=== PATIENT | male | born 1960 | race Caucasian/White ===

== ENCOUNTER 2016-07-27 13:38 | Outpatient (CLI) | payer OTHER ==
[~2016-07-27] VITALS: Ht 188 cm; Wt 96.8 kg
[2016-07-27 14:14] VITALS: BP 130/76; PULSE 62; RESP 18; Ht 188 cm; Wt 96.8 kg
[2016-07-27] MEDS ORDERED: TAMS0.4C2 PO (14:21)
[2016-07-27] MEDS ORDERED: HYDR-906 PO (14:21)
[2016-07-27] MEDS ORDERED: CEFD300C2 PO (14:21)
[2016-07-27] MEDS ORDERED: DOCU-144 PO (14:21)
--- NOTE | 2016-07-27 14:38 | PN ---
Date/Time of Note Date/Time of Note DATE: 07/27/16 TIME: 14:22 Outpatient Progress Note Chief Complaint Perirectal abscess/polycythemia HPI Perirectal abscess/the acute onset, few days' duration, as sure she did with pain, pain score 6 or 7 out of 10, reduced with the pain medication, no fevers chill, no bleeding, pain reduced with incision and drainage, now taking pain medication every 8 hours, Polycythemia/patient has polycythemia, no chest pain, no shortness of breath, no complaint at present, Review of Systems Const: No Fever, no chills, no Wt. loss, no Fatigue, normal appetite, no diaphoresis. Eyes: No pain, no discharge, no redness, no visual change, no foreign body. ENT: No pain, no bleeding, no congestion, no sore throat, no dysphagia, no discharge or rhinitis. Lymph: No adenopathy, no tender nodes, no lymphedema. Resp: No SOB, no cough, no sputum, no wheezing, no chest pain. CV: No chest pain, no palpitaions, no GURROLA, no PND, no edema. GI: Normal appetite, no pain, no nausea, no vomiting, no diarrhea, no blood, no constipation. : No frequency, no urgency, no dysuria, no hematuria, no flank pain, no discharge, no bleeding. Musc: No bone/joint pain, no back pain, no neck pain, no knee pain, no restricted ROM. Skin: No rash, no skin lesions, no erythema, no laceration, no bruising, no pruritus. Patient has perirectal abscess, has a IND, on the left side of the gluteal area, no bleeding or discharge, no redness patient has pain if patient sits too long, Neuro: No MCKEON, no dizziness, no syncope, no seizure, no focal-weakness. Endo: No polyuria, no polydypsia, no dry-skin, no temp-intolerance. Psych: No hallucinations, no depression, no anxiety, no suicidal ideation. Ext: No edema, no pain, no ulcer, no weakness. Physical Exam General Appearance: A 55 year-old male who appears well-developed, well- nourished, in no acute distress. HEENT: Head normocephalic, atraumatic. Pupils equal, round, reactive to light and accommodate. Sclerae are no jaundice. Nasal turbinates pink without erythema or nasal discharge. Mucous membranes pink and moist without lesions. Oropharynx clear without any exudate or discharge. NECK: Supple. Trachea midline, No thyromegaly, No cervical lymphadenopathy, No mass, No carotid bruits, No JVD, Carotid pulses 2+ bilaterally. PULMONARY: Clear to auscultaion bilaterally, No retractions, Chest expansion symmetric bilaterally, no rales, no ronchi, no dulness on percussion. CARDIAC: Normal SI and S2, Regular rate and rythm, no murmur, gallop, or rub. GASTROINTESTINAL: Abdomen is soft, non-tender, Non Rigid, No distention, Positive bowel sounds x4 quadrants, Liver normal. SKIN: Warm, dry, no rash, no bruise, no echmosis., Patient has perirectal abscess which has been incised, and drained, has gauze, no bleeding or discharge , no redness around the wound, no bleeding or discharge, EXTREMITIES: Bilateral lower extremities normal, no edema, no phlabitus, pulse palpable, no contracture. MUSCULOSKELETAL: Spine Normal, Non-tender, Normal range of motion, No swelling, no deformity, no clubbing, or cyanosis, the patient has no edema to bilateral lower extremities, dorsalis pedis pulses palpable bilaterally. NEUROLOGIC: The patient is awake, alert, oriented, responding to yes/no questions appropriately, moving all extremities, cranial nerve intact, normal strenght, normal power, normal coordination, normal gait. Allergies Coded Allergies: No Known Drug Allergies (Verified Allergy, Unknown, 07/27/16) PMH Perirectal abscess,/polycythemia, Social Hx No smoking at present, patient used to smoke, no drinking, no drugs, Family Hx Noncontributory Assessment/Plan Impression Perirectal abscess/polycythemia Plan Patient has perirectal abscess, which has been surgically treated, patient has a wound on her left side of her gluteal area, no bleeding or discharge, no fever or chill, patient feels some time warm at night, has not taken her temperature, Will do CBC, and CMP, Patient advised to encouraged to follow with the primary care physician, we'll try to find out primary care physician, patient encouraged to follow with the primary care and surgery, if any problem to call us or go to primary care, ovary , Wound dressing on daily basis, finished antibiotic, Medications Home Meds Reported Medications Hydrocodone/Acetaminophen ([place] 5-325 Tablet) 1 Each Tablet, 1 EACH PO Q4 for PAIN, TAB 07/27/16 Tamsulosin Hcl* (Tamsulosin Hcl*) 0.4 Mg Cap.er.24h, 0.4 MG PO HS, CAP 07/27/16 Docusate Sodium* (Colace*) 100 Mg Capsule, 200 MG PO BID, #60 CAP 07/27/16 Cefdinir (Cefdinir) 300 Mg Capsule, 300 MG PO BID for 5 Days, #60 CAP 07/27/16 MIGUEL RKAUS MD Jul 27, 2016 14:33
== END 2016-07-27 16:03 | disposition home or self-care (01) ==
LOC: DCC 13:38
PROVIDERS: ATTEND Internal Medicine
DX: K61.1 Rectal abscess (principal); D75.1 Secondary polycythemia
CPT/HCPCS: G0463

== ENCOUNTER 2016-08-16 11:24 | Outpatient (CLI) | payer OTHER ==
[~2016-08-16] VITALS: Ht 188 cm; Wt 100.0 kg
[~2016-08-16 11:24] MED LIST: CEFD300C2 PO; DOCU-144 PO; HYDR-906 PO; TAMS0.4C2 PO
--- NOTE | 2016-08-16 11:42 | PN ---
Date/Time of Note Date/Time of Note DATE: 08/16/16 TIME: 11:42 Outpatient Progress Note Chief Complaint Perirectal abscess/polycythemia/urinary retention/ HPI Perianal abscess/patient had perianal abscess, patient had incision and drainage of the abscess, no fever or chill, no bleeding or discharge, Polycythemia/no headache or dizziness, no active problem, Urinary retention/patient had urinary retention, patient has full catheter, patient was recently hospitalized, and seen by urologist, patient also had to learn to catheterize himself, Review of Systems Const: No Fever, no chills, no Wt. loss, no Fatigue, normal appetite, no diaphoresis. Eyes: No pain, no discharge, no redness, no visual change, no foreign body. ENT: No pain, no bleeding, no congestion, no sore throat, no dysphagia, no discharge or rhinitis. Lymph: No adenopathy, no tender nodes, no lymphedema. Resp: No SOB, no cough, no sputum, no wheezing, no chest pain. CV: No chest pain, no palpitaions, no GURROLA, no PND, no edema. GI: Normal appetite, no pain, no nausea, no vomiting, no diarrhea, no blood, no constipation. : No frequency, no urgency, no dysuria, no hematuria, no flank pain, no discharge, no bleeding. Musc: No bone/joint pain, no back pain, no neck pain, no knee pain, no restricted ROM. Skin: No rash, no skin lesions, no erythema, no laceration, no bruising, no pruritus. Right gluteal area renal abscess healing well, no redness no bleeding or discharge, Neuro: No MCKEON, no dizziness, no syncope, no seizure, no focal-weakness. Endo: No polyuria, no polydypsia, no dry-skin, no temp-intolerance. Psych: No hallucinations, no depression, no anxiety, no suicidal ideation. Ext: No edema, no pain, no ulcer, no weakness. Physical Exam Vital Signs Date Time Temp Pulse Resp B/P Pulse Ox O2 Delivery O2 Flow Rate FiO2 08/16/16 12:18 98.1 74 18 131/61 92 Room Air General Appearance: A 55] year-old [malewho appears well-developed, well- nourished, in no acute distress HEENT:Head normocephalic, atraumatic. Pupils equal, round, reactive to light and accommodate. Sclerae are no jaundice. Nasal turbinates pink without erythema or nasal discharge. Mucous membranes pink and moist without lesions. Oropharynx clear without any exudate or discharge NECK:Supple. Trachea midline, No thyromegaly, No cervical lymphadenopathy, No mass, No carotid bruits, No JVD, Carotid pulses 2+ bilaterally PULMONARY:Clear to auscultaion bilaterally, No retractions, Chest expansion symmetric bilaterally, no rales, no ronchi, no dulness on percussion CARDIAC:Normal SI and S2, Regular rate and rythm, no murmur, gallop, or rub GASTROINTESTINAL:Abdomen is soft, non-tender, Non Rigid, No distention, Positive bowel sounds x4 quadrants, Liver normal SKIN:Warm, dry, no rash, no bruise, no echmosis perianal abscess healing well, EXTREMITIES:Bilateral lower extremities normal, no edema, no phlabitus, pulse palpable, no contracture MUSCULOSKELETAL:Spine Normal, Non-tender, Normal range of motion, No swelling, no deformity, no clubbing, or cyanosis, the patient has no edema to bilateral lower extremities, dorsalis pedis pulses palpable bilaterally NEUROLOGIC:The patient is awake, alert, oriented, responding to yes/no questions appropriately, moving all extremities, cranial nerve intact, normal strenght, normal power, normal coordination, normal gait Allergies Coded Allergies: No Known Drug Allergies (Verified Allergy, Unknown, 07/27/16) PMH No change Social Hx No change Family Hx No change Assessment/Plan Impression Perianal abscess healing well/polycythemia/urinary retention Plan Patient had perirectal abscess, dressing removed, and iodine cause inserted, local dressing change, Patient had urinary retention, patient had to be catheterized by urologist, now patient needs to do in and out catheterization, Change her dressing every day on abscess site, patient had been followed by home health care, Discussed with the patient about UTI and infection, monitor closely, Patient encouraged to follow with the primary care physician, Medications Home Meds Reported Medications Hydrocodone/Acetaminophen ([place] 5-325 Tablet) 1 Each Tablet, 1 EACH PO Q4 for PAIN, TAB 07/27/16 Tamsulosin Hcl* (Tamsulosin Hcl*) 0.4 Mg Cap.er.24h, 0.4 MG PO HS, CAP 07/27/16 Docusate Sodium* (Colace*) 100 Mg Capsule, 200 MG PO BID, #60 CAP 07/27/16 Cefdinir (Cefdinir) 300 Mg Capsule, 300 MG PO BID for 5 Days, #60 CAP 07/27/16 MIGUEL KRAUS MD Aug 16, 2016 11:42
[2016-08-16 12:17] VITALS: Ht 188 cm; Wt 100.0 kg
[2016-08-16 12:18] VITALS: BP 131/61; PULSE 74; RESP 18
== END 2016-08-16 16:38 | disposition home or self-care (01) ==
LOC: DCC 11:24
PROVIDERS: ATTEND Internal Medicine
DX: K61.0 Anal abscess (principal); D75.1 Secondary polycythemia; R33.9 Retention of urine, unspecified
CPT/HCPCS: G0463